=== PATIENT | female | born 1990 ===

== ENCOUNTER 2016-10-19 13:28 | Observation (INO) | payer MEDICAID, OTHER ==
[2016-10-19 13:36] VITALS: O2SAT 100
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
[2016-10-19 15:07] LABS: BASO # 0.1 K/uL (0.0-0.2); BASO % 0.6 % (0.0-2.0); EOS # 0.1 K/uL (0.0-0.7); EOS % 0.6 % (0.0-4.0); HEMATOCRIT 42.5 % (34.0-47.0); LYMPH # 2.6 K/uL (1.0-4.3); MEAN CELL VOLUME 86.9 fl (81.0-99.0); MEAN CORPUSCULAR HEMOGLOBIN 28.4 pg (27.0-31.0); MEAN CORPUSCULAR HGB CONC 32.7 g/dL (33.0-37.0); MEAN PLATELET VOLUME 7.8 fl (7.2-11.7); MONO # 0.7 K/uL (0.0-0.8); MONO % 6.5 % (0.0-10.0); NEUT # 6.6 K/uL (1.8-7.0); NEUT % 66.3 % (50.0-75.0); NRBC % 0.2 % (0.0-0.0); RED CELL DISTRIBUTION WIDTH 14.4 % (11.5-14.5)
[2016-10-19 15:14] LABS: ALB/GLOB RATIO 1.2 (1.0-2.1); ALKALINE PHOSPHATASE 74 U/L (38-126); ALT/SGPT 41 U/L (9-52); AST/SGOT 34 U/L (14-36); BILIRUBIN,TOTAL 0.3 mg/dl (0.2-1.3); BLOOD UREA NITROGEN 12 mg/dl (7-17); CALCIUM 9.9 mg/dL (8.4-10.2); CARBON DIOXIDE 29 mmol/L (22-30); CHLORIDE 102 mmol/L (98-107); GFR AFRICAN-AMERICAN > 60; GLUCOSE,RANDOM 89 mg/dL (65-105); POTASSIUM 4.4 MMOL/L (3.6-5.0); SODIUM 145 mmol/l (132-148); TOTAL PROTEIN 9.6 G/DL (6.3-8.2)
[2016-10-19] MEDS ORDERED: cefTRIAXone (Rocephin) 250 mg Inj IM STA (17:49)
[2016-10-19 18:48] VITALS: BP 126/69; PULSE 73; RESP 16; TEMP 98.6
== END 2016-10-19 18:47 | disposition home or self-care (01) ==
LOC: H.ER 13:28 → H.EROBSV 14:33
PROVIDERS: ADMIT Emergency Medicine; ATTEND Emergency Medicine
DX: T74.21XA Adult sexual abuse, confirmed, initial encounter (principal)